=== PATIENT | female | born 1995 ===

== ENCOUNTER 2018-12-09 18:26 | Emergency (ER) | payer OTHER ==
[2018-12-09 18:34] VITALS: BP 107/76; PULSE 81; RESP 18; TEMP 98.1; O2SAT 100
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
[2018-12-09] MEDS ORDERED: Lidocaine 5% Patch TD STA (20:46)
[2018-12-09] MEDS ORDERED: Lidocaine 5% Patch TD ONE (20:57)
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
== END 2018-12-09 20:56 | disposition home or self-care (01) ==
LOC: C.ER 18:26
DX: S09.90XA Unspecified injury of head, initial encounter (principal); S39.012A Strain of muscle, fascia and tendon of lower back, initial encounter; V49.40XA Driver injured in collision with unspecified motor vehicles in traffic accident, initial encounter